=== PATIENT | female | born 1950 | race Caucasian/White ===

== ENCOUNTER 2022-11-24 09:00 | Outpatient (RCR) | payer MEDICARE, SELFPAY ==
[2022-10-23 07:45] VITALS: BP 130/70; PULSE 89; O2SAT 98
== END 2022-12-07 15:03 | disposition home or self-care (01) ==
LOC: HO.PTWFD 09:00
PROVIDERS: PCP Internal Medicine; Visit Provider Orthopaedic Surgery
DX: Z96.651 Presence of right artificial knee joint (principal)
CPT/HCPCS: 97110; 97140; 97150; 97162; 97530; 97535

== ENCOUNTER 2023-10-25 11:00 | Outpatient (RCR) | payer MEDICARE, SELFPAY ==
[2023-09-03 07:41] VITALS: BP 106/64; PULSE 92; O2SAT 98
== END 2023-10-25 12:13 | disposition home or self-care (01) ==
LOC: HO.PTWFD 11:00
PROVIDERS: PCP Internal Medicine; Visit Provider Orthopaedic Surgery
DX: Z47.89 Encounter for other orthopedic aftercare (principal); Z96.642 Presence of left artificial hip joint
CPT/HCPCS: 97110; 97140; 97161; 97530; 97535